=== PATIENT | male | born 1995 | race Hispanic/Latino ===

== ENCOUNTER 2016-08-17 09:31 | Emergency (ER) | payer SELFPAY ==
--- NOTE | 2016-08-17 12:03 | Emergency Department Report ---
Abscess Boil HPI - HPI Chief Complaint: Skin/Abscess/Foreign Body Stated Complaint: KNOT IN FACE Time Seen by Provider: 08/17/16 11:25 Duration: Today Severity: Mild History: Yes Pain, No Fever, No Purulent Drainage, No Numbness, No Foreign Body , No Previous History, No Insect Bite HPI: 20-year-old male no significant past medical history presents with complaint of a painful pimple to his left cheek. Patient states he has had it for 2 days and has some external localized pain and pressure. Denies any fever or chills no earache no nasal pain no recent dental surgery is no intraoral pain. Patient has visible single pustule on malar region on left cheek. Home Medications: Previous Rx's Medication Instructions Recorded Last Taken Type Ibuprofen [Motrin] 600 mg PO Q8H PRN #60 tablet 01/02/15 Unknown Rx traMADol [Ultram] 50 mg PO Q6HR PRN #14 tablet 01/02/15 Unknown Rx Cephalexin [Keflex] 500 mg PO Q12HR #14 cap 08/17/16 Unknown Rx Ibuprofen [Motrin] 600 mg PO Q8H PRN #30 tablet 08/17/16 Unknown Rx Permethrin 5% [Acticin 5% CREAM] 1 applicatio TP ONCE #1 tube 08/17/16 Unknown Rx Sulfamethoxazole/Trimethoprim 1 each PO BID #14 tablet 08/17/16 Unknown Rx [Bactrim DS TAB] Allergies/Adverse Reactions: Allergies Allergy/AdvReac Type Severity Reaction Status Date / Time No Known Allergies Allergy Verified 01/02/15 21:37 ED Review of Systems ROS: Stated complaint: KNOT IN FACE Other details as noted in HPI Constitutional: denies: chills, fever Eyes: denies: eye pain, eye discharge, vision change ENT: denies: ear pain, throat pain Respiratory: denies: cough, shortness of breath, wheezing Cardiovascular: denies: chest pain, palpitations Endocrine: no symptoms reported Gastrointestinal: denies: abdominal pain, nausea, diarrhea Genitourinary: denies: urgency, dysuria Musculoskeletal: denies: back pain, joint swelling, arthralgia Skin: as per HPI (single pimple left cheek). denies: rash, lesions Neurological: denies: headache, weakness, paresthesias Psychiatric: denies: anxiety, depression Hematological/Lymphatic: denies: easy bleeding, easy bruising ED Past Medical Hx - Past Medical History Previous Medical History?: No - Surgical History Past Surgical History?: No - Social History Smoking Status: Current Every Day Smoker Substance Use Type: None - Medications Home Medications: Home Medications Medication Instructions Recorded Confirmed Last Taken Type Ibuprofen [Motrin] 600 mg PO Q8H PRN #60 tablet 01/02/15 Unknown Rx traMADol [Ultram] 50 mg PO Q6HR PRN #14 tablet 01/02/15 Unknown Rx Cephalexin [Keflex] 500 mg PO Q12HR #14 cap 08/17/16 Unknown Rx Ibuprofen [Motrin] 600 mg PO Q8H PRN #30 tablet 08/17/16 Unknown Rx Permethrin 5% [Acticin 5% CREAM] 1 applicatio TP ONCE #1 tube 08/17/16 Unknown Rx Sulfamethoxazole/Trimethoprim 1 each PO BID #14 tablet 08/17/16 Unknown Rx [Bactrim DS TAB] ED Abscess Boil Physical Exam - Exam General: Vital signs noted. No distress. Alert and acting appropriately. Front/Back of Body, Lg (Color): 1 - Single pustule on left cheek on lateral corner zygomatic arch less than 1 cm no surrounding cellulitis Exam: Yes Tenderness, No Fluctuance, No Surrounding Cellulites/Erythema, No Lymphangitis, No Crepitation, No Heart Murmur, No Normal Neurologic Exam, No Normal Circulation I & D Note - I & D Note I & D Note: Single superficial pustule on left cheek. With light direct compression bilaterally the pustule burst, tiny amount of purulent/sebaceous drainage. Minimal to no bleeding. No palpable underlying fluctuance, no surrounding erythema or induration. Area less than 1 cm ED Course Vital Signs 08/17/16 09:34 Temperature 98.7 F Pulse Rate 68 Respiratory 18 Rate Blood Pressure 132/84 O2 Sat by Pulse 99 Oximetry Critical care attestation.: If time is entered above; I have spent that time in minutes in the direct care of this critically ill patient, excluding procedure time. ED Medical Decision Making - Medical Decision Making A/P: Single pustule on face. Possible scabies infection 1-no significant facial abscess on clinical exam. With very light compression bilaterally to pustule it opened and drained. Minimal scant amount less than half a cc of purulent/sebaceous drainage 2-Motrin 600 when necessary, Atrovent and Keflex twice a day 7 days. I advised the patient to use warm compresses and allow hot water to hit the area to reduce any remaining induration. There is little to none on exam 3-I advised the patient's return to the ED if he experiences any pus drainage, increasing fluctuance or reaccumulation of an abscess to the face any fevers or chills or significant facial pain. 4-patient states he has had family members at home with scabies recently, I will treat empirically with permethrin cream ED Disposition Clinical Impression: Skin pustule, Scabies exposure Disposition: TO HOME OR SELFCARE Is pt being admited?: No Does the pt Need Aspirin: No Condition: Stable Instructions: Permethrin (On the skin), Body Lice (ED), Abscess (ED) Prescriptions: Cephalexin [Keflex] 500 mg PO Q12HR #14 cap Ibuprofen [Motrin] 600 mg PO Q8H PRN #30 tablet PRN Reason: Pain Permethrin 5% [Acticin 5% CREAM] 1 applicatio TP ONCE #1 tube Sulfamethoxazole/Trimethoprim [Bactrim DS TAB] 1 each PO BID #14 tablet Referrals: [facility] [Provider Group] - 3-5 Days Forms: Work/School Release Form(ED) Time of Disposition: 12:08
[2016-08-17 12:27] VITALS: BP 147/91
== END 2016-08-17 12:25 | disposition home or self-care (01) ==
LOC: ED 09:31
DX: L08.9 Local infection of the skin and subcutaneous tissue, unspecified (principal); Z20.89 Contact with and (suspected) exposure to other communicable diseases; F17.200 Nicotine dependence, unspecified, uncomplicated
CPT/HCPCS: 99282

== ENCOUNTER 2017-03-22 23:38 | Emergency (ER) | payer SELFPAY ==
[2017-03-23 01:03] VITALS: BP 108/64
--- NOTE | 2017-03-23 02:13 | XRay Report ---
FINAL REPORT EXAM: XR KNEE 1-2V LT HISTORY: Status post fall, pain, swelling. TECHNIQUE: Frontal and lateral radiographs of the left knee were obtained. No prior studies are available for comparison. FINDINGS: There is no fracture or dislocation. No other discrete osseous abnormality is seen. There is no significant joint effusion. No significant soft tissue abnormality is identified. IMPRESSION: No fracture, dislocation, or other osseous abnormality.
== END 2017-03-23 04:50 | disposition left against medical advice (07) ==
LOC: ED 23:38
DX: M25.561 Pain in right knee (principal); Z53.21 Procedure and treatment not carried out due to patient leaving prior to being seen by health care provider